=== PATIENT | male | born 1980 | race Caucasian/White ===

== ENCOUNTER 2018-05-10 01:17 | Emergency (ER) | payer OTHER, SELFPAY ==
[2018-05-10 01:27] VITALS: BP 157/95; PULSE 78; RESP 20; TEMP 37.2; O2SAT 98; BMI 62.6
--- NOTE | 2018-05-10 02:16 | ED.SKABFB ---
HPI - Skin/Abscess/Foreign Bdy General Chief complaint: Skin/Abscess/Foreign Body Stated complaint: states abscess left lower abdomen Time Seen by Provider: 05/10/18 02:16 Source: patient Mode of arrival: ambulatory Limitations: no limitations History of Present Illness HPI narrative: The patient presents with an abscess on his left lower abdomen. He has a history of multiple abscesses. His usually manages them at home. He is diabetic, his glucose level has been running in the 200s. He says he has been unable to get the glucose level down. He denies fever or chills. He has had no drainage from the site. The situation started 4 days ago. The abscess has been increasing in size, but has doubled today. He now has a band of erythema around the site. Related Data Home Medications Medication Instructions Recorded Confirmed fluoxetine [Prozac] #0 07/03/12 03/31/18 metformin [Glucophage XR] 500 mg PO QDAY #0 07/03/12 03/31/18 metoprolol tartrate 50 mg PO BID #0 07/03/12 03/31/18 atorvastatin 40 mg PO HS #0 tab 07/21/16 03/31/18 gemfibrozil 600 mg PO BIDAC #60 tab 07/21/16 03/31/18 glipizide 10 mg PO #0 tab 07/21/16 03/31/18 losartan 50 mg PO QDAY #0 tab 07/21/16 03/31/18 nitroglycerin [Nitrostat] 0.4 mg SUBLINGUAL #0 tab 07/21/16 03/31/18 ranitidine HCl 150 mg PO QDAY #0 tab 07/21/16 03/31/18 Previous Rx's Medication Instructions Recorded amoxicillin-pot clavulanate 875 mg PO BID #20 tab 07/21/16 [Augmentin] celecoxib 200 mg capsule 200 mg PO BID PRN #60 cap 03/31/18 clindamycin HCl [Cleocin HCl] 300 mg PO Q8H 10 Days #30 cap 05/10/18 Allergies Allergy/AdvReac Type Severity Reaction Status Date / Time metaproterenol [From ALUPENT] Allergy Unknown Verified 03/31/18 19:40 Sulfa (Sulfonamide Allergy Unknown Verified 03/31/18 19:40 Antibiotics) [SULFA (SULFONAMIDE ANTIBIOTICS)] Review of Systems Constitutional Denies chills, Denies fever(s), Denies lethargy and Denies weakness Eyes Denies change in vision, Denies eye discharge, Denies irritation and Denies loss of vision Gastrointestinal Gastrointestinal: Reports as per HPI, Reports abdominal pain, Denies diarrhea, Denies nausea and Denies vomiting Integumentary/Breasts Reports as per HPI, Reports erythema and Reports other ( Abscess formation) Neurologic Denies loss of vision and Denies weakness [facility] Medical History Diabetes (Acute) Hyperlipidemia (Acute) Hypertension (Acute) Social History Smoking Status: Never smoker Exam Initial Vital Signs Initial Vital Signs: Vital Signs Temperature 98.9 F 05/10/18 01:27 Pulse Rate 78 05/10/18 01:27 Respiratory Rate 20 05/10/18 01:27 Blood Pressure 157/95 H 05/10/18 01:27 Pulse Oximetry 98 05/10/18 01:27 Const General: cooperative and other ( morbidly obese) Orientation: alert, awake, oriented x3 and not confused GI Inspection: large pannus and other ( Abscess in the left lower quadrant, under the pannus. the abscess is fluctuant and protruding, measuring 4 cm x 2 cm. there is no drainage. There is surrounding erythema.) Palpation: soft, No guarding and No mass Auscultation: normal bowel sounds Skin General: other ( Abscess formation as noted on the lower abdomen.) Procedures Abscess I/D Site: abdomen Side (if applicable): left Sedation/analgesia: none Local Anesthetic: lidocaine 1% Amount of anesthesia used (mL): 5 Technique: incised with #11 blade Amount of fluid expressed (mL): 5 Irrigation: Yes Packing used?: iodoform Complications: pain and other ( A wound culture was obtained.) Course Orders Ordered: ED Orders 05/10/18 04:39 Wound Culture and Gram Stain Stat Discontinued Medications Lidocaine/Prilocaine (Lidocaine-Prilocaine Cream) 5 gm TOP NOW ONE Stop: 05/10/18 02:48 Last Admin: 05/10/18 02:53 Dose: 5 gm Vital Signs - 8 hr 05/10/18 01:27 Temperature 98.9 F Pulse Rate 78 Respiratory Rate 20 Blood Pressure 157/95 H Pulse Oximetry 98 Discharge Plan Departure Patient Disposition: Home, Self-Care Clinical Impression: Abscess of skin or subcutaneous tissue, Cellulitis Instructions: DI for Incision and Drainage of a Skin Abscess Activity Restrictions/Additional Instructions: Cleocin 300 mg 3 times daily. Take Tylenol or Advil as needed for pain. Change the dressing as often as necessary. Follow up with her doctor in about 3 days for re-evaluation of the wound. Return here if the redness spreads significantly, or if you developed fever. Prescriptions: New clindamycin HCl [Cleocin HCl] 300 mg capsule 300 mg PO Q8H 10 Days Qty: 30 RF: 0 No Action celecoxib [Celebrex] 200 mg capsule 200 mg PO BID PRN (Reason: pain) Qty: 60 RF: 0 metformin [Glucophage XR] 500 MG tablet extended release 24 hr 500 mg PO QDAY Qty: 0 RF: 0 metoprolol tartrate 50 MG tablet 50 mg PO BID Qty: 0 RF: 0 fluoxetine [Prozac] 10 MG capsule Qty: 0 RF: 0 losartan 50 MG tablet 50 mg PO QDAY Qty: 0 RF: 0 gemfibrozil 600 MG tablet 600 mg PO BIDAC Qty: 60 RF: 0 ranitidine HCl 150 MG tablet 150 mg PO QDAY Qty: 0 RF: 0 atorvastatin 40 MG tablet 40 mg PO HS Qty: 0 RF: 0 glipizide 10 MG tablet 10 mg PO Qty: 0 RF: 0 nitroglycerin [Nitrostat] 0.4 MG tablet, sublingual 0.4 mg Sublingual Qty: 0 RF: 0 amoxicillin-pot clavulanate [Augmentin] 875 MG/125 MG tablet 875 mg PO BID Qty: 20 RF: 0
[2018-05-10] MEDS: LIDOCAINE/PRILOCAINE 5 GM TOP (02:53)
[2018-05-10] MEDS: CLINDAMYCIN 150 MG CAPSULE 300 MG PO (04:47)
[2018-05-10 04:56] VITALS: BP 129/79; PULSE 71; RESP 16; TEMP 36.9; O2SAT 96
== END 2018-05-10 04:55 | disposition home or self-care (01) ==
PROVIDERS: Emergency Provider Emergency Medicine; PCP Physician Assistant Medical
DX: L02.91 Cutaneous abscess, unspecified (principal); L03.90 Cellulitis, unspecified
CPT/HCPCS: 10060; 87070; 87075; 87077; 87205; 99282; 99283

== ENCOUNTER → 2018-09-21 11:07 | Outpatient (CLI) | payer OTHER, SELFPAY ==
[2018-09-21 13:01] LABS: Bacteria Urine None Seen; RBC Urine None Seen (0-5/HPF)
[2018-09-21 13:24] LABS: Add Manual Diff / Slide Review NO; Basophils Percent Auto 1.1 % (0-2); Eosinophils Percent Auto 1.6 % (2-4); Hematocrit 43.8 % (41-53); Hemoglobin 14.5 g/dL (13.5-17.5); Lymphocytes Percent Auto 14.9 % (25-40); Mean Corpuscular HGB Conc 33.1 % (30-36); Mean Corpuscular Hemoglobin 27.9 PG (26-34); Mean Corpuscular Volume 84.3 fL (80-100); Monocytes Percent Auto 4.8 % (3-14); Neutrophils Absolute Auto 6300 /uL (1500-7000); Neutrophils Percent Auto 77.6 % (50-75); Platelet Count 221 X10^3/uL (150-400); Red Blood Cell Count 5.19 X10^6/uL (4.5-5.9); Red Cell Distribution Width 14.1 % (11.6-14.8); White Blood Cell Count 8.2 X10^3/uL (4.5-11.0)
[2018-09-21 14:02] LABS: Appearance Urine UA CLEAR; Bilirubin Urine UA NEGATIVE (NEGATIVE); Color Urine UA YELLOW; Glucose Urine UA 2+ g/dL (Normal); Ketones Urine UA 1+ (NEGATIVE); Leukocyte Esterase Urine UA NEGATIVE (NEGATIVE); Nitrite Urine UA NEGATIVE (Negative); Occult Blood Urine UA NEGATIVE (Negative); Protein Urine UA NEGATIVE (Negative); Specific Gravity Urine UA 1.025 (1.000-1.035); Urobilinogen Urine UA 0.2 E.U./dL (0.2)
[2018-09-21 14:21] LABS: Alanine Aminotransferase 50 IU/L (21-72); Albumin 4.3 g/dL (3.5-5.0); Albumin Globulin Ratio 1.7 (1.0-2.8); Alkaline Phosphatase 141 U/L (38-126); Aspartate Aminotransferase 30 IU/L (17-59); BUN Creatinine Ratio 21.4 (6-22); Bilirubin Total 0.5 mg/dL (0.2-1.3); Blood Urea Nitrogen 15 mg/dL (9-20); Calcium 9.3 mg/dL (8.4-10.2); Carbon Dioxide 25 mmol/L (22-32); Chloride 97 mmol/L (98-107); Estimated Glomerular Filt Rate > 60.0 mL/min (>60); Globulin 2.6 g/dL (1.7-4.1); Glucose 370 mg/dL (70-100); HEMOLYSIS < 15 (0-50); Potassium 4.4 mmol/L (3.4-5.1); Sodium 139 mmol/L (137-145); Total Protein 6.9 g/dL (6.3-8.2)
[2018-09-21 14:25] LABS: Culture Indicated Urine Cult Not Indicated; Squamous Epithelial Cell Urine 5-10 /HPF; WBC Urine 5-10/HPF (0-5/HPF)
== END ==
PROVIDERS: PCP Physician Assistant Medical; Visit Provider Physician Assistant
DX: N50.819 Testicular pain, unspecified (principal); N50.9 Disorder of male genital organs, unspecified; R30.0 Dysuria; Z87.438 Personal history of other diseases of male genital organs
CPT/HCPCS: 36415; 80053; 81001; 85025; 87040

== ENCOUNTER 2018-09-21 16:27 | Emergency (ER) | payer OTHER, SELFPAY ==
--- NOTE | 2018-09-21 16:51 | DI.US.S_ITS ---
PROCEDURE: US SCROTUM INDICATIONS: PALPABLE SCROTAL LUMP. 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 TECHNIQUE: Real-time scanning was performed of the scrotum and testicles, with image documentation. Color and pulse Doppler interrogation was performed of both testicles. COMPARISON: [facility], US, ABDOMEN COMPLETE, 02/06/2009, 19:17. FINDINGS: Right: Testicle is normal in size at 3.9 x 2.1 x 4.2 cm, and homogenous in echotexture. Epididymis is normal in overall size and morphology. No hydrocele or varicoceles. There is minimal right scrotal wall skin thickening at the site of the patient's reported area of palpable lump, but no discrete mass can be identified in this region. Left: Testicle is normal in size at 3.9 x 1.7 x 3.6 cm, and homogeneous in echotexture. Epididymis is normal in overall size and morphology. No hydrocele or varicoceles. Overlying scrotal skin is normal in thickness. Doppler: Color and pulse Doppler demonstrate normal and symmetric arterial flow in both testicles. Doppler ultrasound of the region of the patient's reported palpable lump demonstrates no increased vascularity. IMPRESSION: Targeted ultrasound of the site of the patient's reported palpable lump demonstrates minimal right scrotal skin thickening, but no discrete mass can be identified by ultrasound in the region of concern. Dictated by: Cristian Castillo M.D. on 09/21/2018 at 18:50 Approved by: Cristian Castillo M.D. on 09/21/2018 at 18:58
--- NOTE | 2018-09-21 16:55 | PC.NURSE ---
pt reports noticed small mass on scrotum today, concern r/t history of gangrene to area, denies fever/chills/nausea/vomiting/dysuria/urinary retention/trauma or other sx, amb ind, appears well, further exam deferred to MD
[2018-09-21 16:58] VITALS: BP 186/100; PULSE 90; RESP 16; TEMP 36.1; O2SAT 97
--- NOTE | 2018-09-21 17:03 | ED.MALEGU ---
HPI - Male Genitourinary <Sarita Diehl PA-C - Last Filed: 09/21/18 21:20> General Chief complaint: Urogenital-Male Stated complaint: Couldnt get US done, checking into ER for US Time Seen by Provider: 09/21/18 16:51 Source: patient and old records reviewed Mode of arrival: ambulatory Limitations: no limitations History of Present Illness HPI Narrative: This 38-year-old male comes to ED for testicular ultrasound. He noted a lump between his testicles which is painful, just noted this morning. 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 He denies any fever. He denies any new abdominal pain, denies any hematuria or urinary symptoms. He states that labs were done at the walk-in clinic, but there was a problem with ultrasound scheduling and was told it could not be done today so comes here. He has not taken any pain medication for this today. Related Data Home Medications Medication Instructions Recorded Confirmed atorvastatin 40 mg PO BEDTIME #0 tab 07/21/16 09/21/18 gemfibrozil 1,200 mg PO BEDTIME #60 tab 07/21/16 09/21/18 nitroglycerin [Nitrostat] 0.4 mg SUBLINGUAL PRN PRN #0 tab 07/21/16 09/21/18 fluoxetine 40 mg PO BEDTIME 09/21/18 09/21/18 glimepiride 8 mg PO BEDTIME 09/21/18 09/21/18 isosorbide mononitrate 30 mg PO BEDTIME 09/21/18 09/21/18 losartan-hydrochlorothiazide 1 tab PO BEDTIME 09/21/18 09/21/18 metformin 2,000 mg PO BEDTIME 09/21/18 09/21/18 metoprolol succinate 100 mg PO BEDTIME 09/21/18 09/21/18 Allergies Allergy/AdvReac Type Severity Reaction Status Date / Time metaproterenol [From ALUPENT] Allergy Unknown Verified 03/31/18 19:40 Sulfa (Sulfonamide Allergy Unknown Verified 03/31/18 19:40 Antibiotics) [SULFA (SULFONAMIDE ANTIBIOTICS)] Review of Systems <Sarita Diehl PA-C - Last Filed: 09/21/18 21:20> Review of Systems All systems reviewed & are unremarkable except as noted in HPI and below Exam <Sarita Diehl PA-C - Last Filed: 09/21/18 21:20> Narrative Exam Narrative: GENERAL APPEARANCE: Patient sitting comfortably, in no distress. LUNGS: Clear to auscultation bilaterally. HEART: Rate and rhythm regular without murmur, normal S1 and S2, no S3 or S4. ABDOMEN: Obese, nontender, +bowel sounds x4 quadrants EXTREMITIES: No cyanosis, mild edema symmetric bilaterally DERM: Scrotal sac is somewhat dusky/erythematous as is the underside of the pannus more on the left side. : The L. teste is higher riding than the right and is smaller by palpation, there is moderate tenderness left testicular border and central sac, difficult to palpate any circumscribed mass. No discharge. No palpable hernia. There is an ingrown hair with surrounding nodule on the anterior penile base, nontender Initial Vital Signs Initial Vital Signs: Vital Signs Temperature 97 F L 09/21/18 16:58 Pulse Rate 90 09/21/18 16:58 Respiratory Rate 16 09/21/18 16:58 Blood Pressure 186/100 H 09/21/18 16:58 Pulse Oximetry 97 09/21/18 16:58 <Evie Shah DO - Last Filed: 09/22/18 08:12> Initial Vital Signs Initial Vital Signs: Vital Signs Temperature 97 F L 09/21/18 16:58 Pulse Rate 90 09/21/18 16:58 Respiratory Rate 16 09/21/18 16:58 Blood Pressure 186/100 H 09/21/18 16:58 Pulse Oximetry 97 09/21/18 16:58 Course <Sarita Diehl PA-C - Last Filed: 09/21/18 21:20> Additional Information: The patient reported improvement from morning. Both patient and his or significant other who did his wound care after his scrotal surgeries in the past reported that the lump seems larger this morning but are not able to palpate any circumscribed mass now. Patient does have an ingrown hair with some surrounding induration however does not seem tender at that site. No evidence of acute infection on lab work. He will continue anti-inflammatory. Given his history, he agrees to follow up with his PCP in the next day or 2 and return to closest ED if any acutely worsening symptoms. He would like to discharge and will call if any change in findings on radiologist's reading Orders Ordered: Discontinued Medications Ibuprofen (Advil) 800 mg PO NOW ONE Stop: 09/21/18 17:18 Last Admin: 09/21/18 17:36 Dose: 800 mg Vital Signs - 8 hr 09/21/18 16:58 18 18:39 09/21/18 18:43 Temperature 97 F L 98.6 F 97.3 F L Pulse Rate 90 97 H Respiratory Rate 16 18 Blood Pressure 186/100 H Blood Pressure [Right Arm] 171/108 H Pulse Oximetry 97 91 <Evie Shah DO - Last Filed: 09/22/18 08:12> Orders Ordered: Discontinued Medications Ibuprofen (Advil) 800 mg PO NOW ONE Stop: 09/21/18 17:18 Last Admin: 09/21/18 17:36 Dose: 800 mg Vital Signs - 8 hr 09/21/18 16:58 09/21/18 18:39 09/21/18 18:43 Temperature 97 F L 98.6 F 97.3 F L Pulse Rate 90 97 H Respiratory Rate 16 18 Blood Pressure 186/100 H Blood Pressure [Right Arm] 171/108 H Pulse Oximetry 97 91 MDM - Male Genitourinary <Sarita Diehl PA-C - Last Filed: 09/21/18 21:20> Lab Data Attestation: I reviewed the patient's lab results. see additional lab results from walk in clinic (blood cxs pending) Lab Results 09/21/18 Range/Units 17:40 Lactate 1.0 (0.7-2.1) mmol/L Imaging Data scrotal US: Radiologist's impression: Ultrasound Report Signed Patient: Cristian Looney MR#: [id number] : 1980 Acct:[id number] Age/Sex: 38 / M Date of Service: 09/21/18 Loc: ED Accession Number: [id number] Procedure: US scrotum Ordering Provider: Evie Shah D.O. PROCEDURE: US SCROTUM INDICATIONS: PALPABLE SCROTAL LUMP. 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 TECHNIQUE: Real-time scanning was performed of the scrotum and testicles, with image documentation. Color and pulse Doppler interrogation was performed of both testicles. COMPARISON: [facility], US, ABDOMEN COMPLETE, 02/06/2009, 19:17. FINDINGS: Right: Testicle is normal in size at 3.9 x 2.1 x 4.2 cm, and homogenous in echotexture. Epididymis is normal in overall size and morphology. No hydrocele or varicoceles. There is minimal right scrotal wall skin thickening at the site of the patient's reported area of palpable lump, but no discrete mass can be identified in this region. Left: Testicle is normal in size at 3.9 x 1.7 x 3.6 cm, and homogeneous in echotexture. Epididymis is normal in overall size and morphology. No hydrocele or varicoceles. Overlying scrotal skin is normal in thickness. Doppler: Color and pulse Doppler demonstrate normal and symmetric arterial flow in both testicles. Doppler ultrasound of the region of the patient's reported palpable lump demonstrates no increased vascularity. IMPRESSION: Targeted ultrasound of the site of the patient's reported palpable lump demonstrates minimal right scrotal skin thickening, but no discrete mass can be identified by ultrasound in the region of concern. Dictated by: Cristian Castillo M.D. on 09/21/2018 at 18:50 Approved by: Cristian Castillo M.D. on 09/21/2018 <Evie Shah DO - Last Filed: 09/22/18 08:12> Lab Data Lab Results 09/21/18 Range/Units 17:40 Lactate 1.0 (0.7-2.1) mmol/L Discharge Plan Departure Patient Disposition: Home Clinical Impression: Pain in scrotum or testicle Discharge Date/Time: 09/21/18 18:59 Interventions: ED Discharge Assessment Last Done: 09/21/18 18:59 Instructions: DI for Testicular Pain Activity Restrictions/Additional Instructions: Please return as we discussed if you have any acutely worsening symptoms again. Otherwise, please continue ibuprofen every 8 hr. You can put a warm pack on the ingrown hair at the base of your penis (that does not look inflamed and I am not convinced that it was the source of the lump/pain you were feeling earlier). Since the lump seems improved now and there was no acute problem found on your labwork or ultrasound, you can monitor at home and follow up with your PCP in the next day or two for recheck and referral to Urology if you continue to have pain. I will phone you if the radiologist finds any new problems not seen by the technologist, otherwise I will send the results to [facility] Johnson Prescriptions: No Action gemfibrozil 600 MG tablet 1,200 mg PO BEDTIME Qty: 60 RF: 0 atorvastatin 40 MG tablet 40 mg PO BEDTIME Qty: 0 RF: 0 nitroglycerin [Nitrostat] 0.4 MG tablet, sublingual 0.4 mg Sublingual PRN PRN (Reason: Chest Pain) Qty: 0 RF: 0 fluoxetine 40 mg capsule 40 mg PO BEDTIME RF: 0 isosorbide mononitrate 30 mg tablet extended release 24 hr 30 mg PO BEDTIME RF: 0 metoprolol succinate 100 mg tablet extended release 24 hr 100 mg PO BEDTIME RF: 0 losartan-hydrochlorothiazide 100-25 mg tablet 1 tab PO BEDTIME RF: 0 glimepiride 4 mg tablet 8 mg PO BEDTIME RF: 0 metformin 500 mg tablet extended release 24 hr 2,000 mg PO BEDTIME RF: 0 Referrals: Stacey Johnson PA-C [Primary Care Provider] - Stand Alone Forms: Work Release Note <Evie Shah DO - Last Filed: 09/22/18 08:12> [facility] I was immediately available in the department for consultation. Documentation has been reviewed. I agree with assessment and plan.
--- NOTE | 2018-09-21 17:24 | ED_ITS ---
HPI - Male Genitourinary <Sarita Diehl PA-C - Last Filed: 09/21/18 21:20> General Chief complaint: Urogenital-Male Stated complaint: Couldnt get US done, checking into ER for US Time Seen by Provider: 09/21/18 16:51 Source: patient and old records reviewed Mode of arrival: ambulatory Limitations: no limitations History of Present Illness HPI Narrative: This 38-year-old male comes to ED for testicular ultrasound. He noted a lump between his testicles which is painful, just noted this morning. 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 He denies any fever. He denies any new abdominal pain, denies any hematuria or urinary symptoms. He states that labs were done at the walk-in clinic, but there was a problem with ultrasound scheduling and was told it could not be done today so comes here. He has not taken any pain medication for this today. Related Data Home Medications Medication Instructions Recorded Confirmed atorvastatin 40 mg PO BEDTIME #0 tab 07/21/16 09/21/18 gemfibrozil 1,200 mg PO BEDTIME #60 tab 07/21/16 09/21/18 nitroglycerin [Nitrostat] 0.4 mg SUBLINGUAL PRN PRN #0 tab 07/21/16 09/21/18 fluoxetine 40 mg PO BEDTIME 09/21/18 09/21/18 glimepiride 8 mg PO BEDTIME 09/21/18 09/21/18 isosorbide mononitrate 30 mg PO BEDTIME 09/21/18 09/21/18 losartan-hydrochlorothiazide 1 tab PO BEDTIME 09/21/18 09/21/18 metformin 2,000 mg PO BEDTIME 09/21/18 09/21/18 metoprolol succinate 100 mg PO BEDTIME 09/21/18 09/21/18 Allergies Allergy/AdvReac Type Severity Reaction Status Date / Time metaproterenol [From ALUPENT] Allergy Unknown Verified 03/31/18 19:40 Sulfa (Sulfonamide Allergy Unknown Verified 03/31/18 19:40 Antibiotics) [SULFA (SULFONAMIDE ANTIBIOTICS)] Review of Systems <Sarita Diehl PA-C - Last Filed: 09/21/18 21:20> Review of Systems All systems reviewed & are unremarkable except as noted in HPI and below Exam <Sarita Diehl PA-C - Last Filed: 09/21/18 21:20> Narrative Exam Narrative: GENERAL APPEARANCE: Patient sitting comfortably, in no distress. LUNGS: Clear to auscultation bilaterally. HEART: Rate and rhythm regular without murmur, normal S1 and S2, no S3 or S4. ABDOMEN: Obese, nontender, +bowel sounds x4 quadrants EXTREMITIES: No cyanosis, mild edema symmetric bilaterally DERM: Scrotal sac is somewhat dusky/erythematous as is the underside of the pannus more on the left side. : The L. teste is higher riding than the right and is smaller by palpation, there is moderate tenderness left testicular border and central sac, difficult to palpate any circumscribed mass. No discharge. No palpable hernia. There is an ingrown hair with surrounding nodule on the anterior penile base, nontender Initial Vital Signs Initial Vital Signs: Vital Signs Temperature 97 F L 09/21/18 16:58 Pulse Rate 90 09/21/18 16:58 Respiratory Rate 16 09/21/18 16:58 Blood Pressure 186/100 H 09/21/18 16:58 Pulse Oximetry 97 09/21/18 16:58 <Evie Shah DO - Last Filed: 09/22/18 08:12> Initial Vital Signs Initial Vital Signs: Vital Signs Temperature 97 F L 09/21/18 16:58 Pulse Rate 90 09/21/18 16:58 Respiratory Rate 16 09/21/18 16:58 Blood Pressure 186/100 H 09/21/18 16:58 Pulse Oximetry 97 09/21/18 16:58 Course <Sarita Diehl PA-C - Last Filed: 09/21/18 21:20> Additional Information: The patient reported improvement from morning. Both patient and his or significant other who did his wound care after his scrotal surgeries in the past reported that the lump seems larger this morning but are not able to palpate any circumscribed mass now. Patient does have an ingrown hair with some surrounding induration however does not seem tender at that site. No evidence of acute infection on lab work. He will continue anti- inflammatory. Given his history, he agrees to follow up with his PCP in the next day or 2 and return to closest ED if any acutely worsening symptoms. He would like to discharge and will call if any change in findings on radiologist' s reading Orders Ordered: Discontinued Medications Ibuprofen (Advil) 800 mg PO NOW ONE Stop: 09/21/18 17:18 Last Admin: 09/21/18 17:36 Dose: 800 mg Vital Signs - 8 hr 09/21/18 16:58 18 18:39 09/21/18 18:43 Temperature 97 F L 98.6 F 97.3 F L Pulse Rate 90 97 H Respiratory Rate 16 18 Blood Pressure 186/100 H Blood Pressure [Right Arm] 171/108 H Pulse Oximetry 97 91 <Evie Shah DO - Last Filed: 09/22/18 08:12> Orders Ordered: Discontinued Medications Ibuprofen (Advil) 800 mg PO NOW ONE Stop: 09/21/18 17:18 Last Admin: 09/21/18 17:36 Dose: 800 mg Vital Signs - 8 hr 09/21/18 16:58 09/21/18 18:39 09/21/18 18:43 Temperature 97 F L 98.6 F 97.3 F L Pulse Rate 90 97 H Respiratory Rate 16 18 Blood Pressure 186/100 H Blood Pressure [Right Arm] 171/108 H Pulse Oximetry 97 91 MDM - Male Genitourinary <Sarita Diehl PA-C - Last Filed: 09/21/18 21:20> Lab Data Attestation: I reviewed the patient's lab results. see additional lab results from walk in clinic (blood cxs pending) Lab Results 09/21/18 Range/Units 17:40 Lactate 1.0 (0.7-2.1) mmol/L Imaging Data scrotal US: Radiologist's impression: Ultrasound Report Signed Patient: Cristian Looney MR#: [id number] : 1980 Acct:[id number] Age/Sex: 38 / M Date of Service: 09/21/18 Loc: ED Accession Number: [id number] Procedure: US scrotum Ordering Provider: Evie Shah D.O. PROCEDURE: US SCROTUM INDICATIONS: PALPABLE SCROTAL LUMP. Patient reports a palpable scrotal wall lump near the head of the penis, per butcher fish. TECHNIQUE: Real-time scanning was performed of the scrotum and testicles, with image documentation. Color and pulse Doppler interrogation was performed of both testicles. COMPARISON: [facility], US, ABDOMEN COMPLETE, 02/06/2009, 19:17. FINDINGS: Right: Testicle is normal in size at 3.9 x 2.1 x 4.2 cm, and homogenous in echotexture. Epididymis is normal in overall size and morphology. No hydrocele or varicoceles. There is minimal right scrotal wall skin thickening at the site of the patient's reported area of palpable lump, but no discrete mass can be identified in this region. Left: Testicle is normal in size at 3.9 x 1.7 x 3.6 cm, and homogeneous in echotexture. Epididymis is normal in overall size and morphology. No hydrocele or varicoceles. Overlying scrotal skin is normal in thickness. Doppler: Color and pulse Doppler demonstrate normal and symmetric arterial flow in both testicles. Doppler ultrasound of the region of the patient's reported palpable lump demonstrates no increased vascularity. IMPRESSION: Targeted ultrasound of the site of the patient's reported palpable lump demonstrates minimal right scrotal skin thickening, but no discrete mass can be identified by ultrasound in the region of concern. Dictated by: Cristian Castillo M.D. on 09/21/2018 at 18:50 Approved by: Cristian Castillo M.D. on 09/21/2018 <Evie Shah DO - Last Filed: 09/22/18 08:12> Lab Data Lab Results 09/21/18 Range/Units 17:40 Lactate 1.0 (0.7-2.1) mmol/L Discharge Plan Departure Patient Disposition: Home Clinical Impression: Pain in scrotum or testicle Discharge Date/Time: 09/21/18 18:59 Interventions: ED Discharge Assessment Last Done: 09/21/18 18:59 Instructions: DI for Testicular Pain Activity Restrictions/Additional Instructions: Please return as we discussed if you have any acutely worsening symptoms again. Otherwise, please continue ibuprofen every 8 hr. You can put a warm pack on the ingrown hair at the base of your penis (that does not look inflamed and I am not convinced that it was the source of the lump/pain you were feeling earlier). Since the lump seems improved now and there was no acute problem found on your labwork or ultrasound, you can monitor at home and follow up with your PCP in the next day or two for recheck and referral to Urology if you continue to have pain. I will phone you if the radiologist finds any new problems not seen by the technologist, otherwise I will send the results to [facility] Prescriptions: No Action gemfibrozil 600 MG tablet 1,200 mg PO BEDTIME Qty: 60 RF: 0 atorvastatin 40 MG tablet 40 mg PO BEDTIME Qty: 0 RF: 0 nitroglycerin [Nitrostat] 0.4 MG tablet, sublingual 0.4 mg Sublingual PRN PRN (Reason: Chest Pain) Qty: 0 RF: 0 fluoxetine 40 mg capsule 40 mg PO BEDTIME RF: 0 isosorbide mononitrate 30 mg tablet extended release 24 hr 30 mg PO BEDTIME RF: 0 metoprolol succinate 100 mg tablet extended release 24 hr 100 mg PO BEDTIME RF: 0 losartan-hydrochlorothiazide 100-25 mg tablet 1 tab PO BEDTIME RF: 0 glimepiride 4 mg tablet 8 mg PO BEDTIME RF: 0 metformin 500 mg tablet extended release 24 hr 2,000 mg PO BEDTIME RF: 0 Referrals: Stacey Johnson PA-C [Primary Care Provider] - Stand Alone Forms: Work Release Note <Evie Shah DO - Last Filed: 09/22/18 08:12> [facility] I was immediately available in the department for consultation. Documentation has been reviewed. I agree with assessment and plan.
[2018-09-21] MEDS: IBUPROFEN 400 MG TABLET 800 MG PO (17:36)
[2018-09-21 18:39] VITALS: TEMP 37
[2018-09-21 18:43] VITALS: BP 171/108; PULSE 97; RESP 18; TEMP 36.3; O2SAT 91
== END 2018-09-21 18:59 | disposition home or self-care (01) ==
PROVIDERS: Emergency Provider Internal Medicine; PCP Physician Assistant Medical
DX: N50.819 Testicular pain, unspecified (principal)
CPT/HCPCS: 36415; 76870; 80053; 81001; 83605; 85025; 87040; 99282; 99284

== ENCOUNTER 2019-10-21 22:16 | Emergency (ER) | payer OTHER, SELFPAY ==
[2019-10-21 22:24] VITALS: BP 148/82; PULSE 104; RESP 18; TEMP 35.7; O2SAT 94; BMI 86.9
[2019-10-21] MEDS: DOXYCYCLINE HYCLATE 100 MG TABLET PO (22:43)
--- NOTE | 2019-10-22 00:31 | ED.SKABFB ---
HPI - Skin/Abscess/Foreign Bdy General Chief complaint: Skin/Abscess/Foreign Body Stated complaint: states infected abscess Time Seen by Provider: 10/21/19 22:33 Source: patient and family Mode of arrival: Family Vehicle Limitations: no limitations History of Present Illness HPI narrative: 39-year-old male nonsmoker with history of diabetes and morbid obesity as well as multiple skin infections presents with his in the chief complaint of superficial abscess on his left lower abdomen that is draining foul-smelling material. He denies any fever chills nor nausea or vomiting. He is not dizzy nor weak or lightheaded. He states that in the past he has had to have his abscess packed so he wanted to be seen. He denies any trouble with bowel movements or any deep abdominal pain. His pain is worse with motion and improves with rest. MD complaint: abscess/boil Onset (ago): day(s) Tetanus up to date: yes Location: generalized (Left lower quadrant) Severity: mild Quality: aching Pain Consistency: constant Relieving factors: rest Exacerbating factors: palpation and movement Context: none Associated symptoms: denies other symptoms Treatments prior to arrival: attempted to drain pus at home Related Data Home Medications Medication Instructions Recorded Confirmed atorvastatin 40 mg PO BEDTIME #0 tab 07/21/16 09/21/18 gemfibrozil 1,200 mg PO BEDTIME #60 tab 07/21/16 09/21/18 nitroglycerin [Nitrostat] 0.4 mg SUBLINGUAL PRN PRN #0 tab 07/21/16 09/21/18 fluoxetine 40 mg PO BEDTIME 09/21/18 09/21/18 glimepiride 8 mg PO BEDTIME 09/21/18 09/21/18 isosorbide mononitrate 30 mg PO BEDTIME 09/21/18 09/21/18 losartan-hydrochlorothiazide 1 tab PO BEDTIME 09/21/18 09/21/18 metformin 2,000 mg PO BEDTIME 09/21/18 09/21/18 metoprolol succinate 100 mg PO BEDTIME 09/21/18 09/21/18 Previous Rx's Medication Instructions Recorded doxycycline monohydrate 100 mg PO BID 10 Days #20 cap 10/21/19 Allergies Allergy/AdvReac Type Severity Reaction Status Date / Time metaproterenol [From ALUPENT] Allergy Unknown Verified 03/31/18 19:40 Sulfa (Sulfonamide Allergy Unknown Verified 03/31/18 19:40 Antibiotics) [SULFA (SULFONAMIDE ANTIBIOTICS)] Review of Systems Constitutional Constitutional: Denies chills, Denies fatigue, Denies fever(s), Denies frequent falls, Denies lethargy and Denies weakness Eyes Eyes: Denies change in vision, Denies eye discharge, Denies irritation and Denies loss of vision ENT Ears, Nose, Mouth, and Throat: Denies change in voice, Denies dizziness, Denies neck pain, Denies sore throat and Denies throat swelling Cardiovascular Cardiovascular: Denies chest pain, Denies irregular heart rhythm, Denies lightheadedness, Denies palpitations, Denies dyspnea, Denies dyspnea on exertion and Denies orthopnea Respiratory Respiratory: Denies cough, Denies dyspnea, Denies dyspnea on exertion and Denies wheezing Gastrointestinal Gastrointestinal: Denies abdominal pain, Denies change in bowel habits, Denies diarrhea, Denies nausea and Denies vomiting Genitourinary Genitourinary: Denies hematuria, Denies flank pain, Denies urinary incontinence and Denies urinary urgency Musculoskeletal Musculoskeletal: Denies back pain, Denies muscle weakness, Denies neck pain, Denies numbness and Denies tingling Integumentary/Breasts Skin/Breast: Denies pruritus, Reports erythema, Denies rash, Reports skin swelling and Reports wounds Neurologic Neurologic: Denies behavioral changes, Denies confusion, Denies dizziness, Denies frequent falls, Denies loss of vision, Denies numbness, Denies tingling and Denies weakness Psychiatric Psychiatric: Denies anxiety, Denies behavioral changes, Denies confusion, Denies depression, Denies homicidal ideation and Denies suicidal ideation Endocrine Endocrine: Denies fatigue, Denies flushing and Denies palpitations Hematologic/Lymphatic Hematologic/Lymphatic: Denies easy bruising Allergic/Immunologic Allergic/Immunologic: Denies urticaria, Denies throat swelling and Denies wheezing Patient History Medical History Diabetes (Chronic) History of Darcy's gangrene (Resolved) Hyperlipidemia (Chronic) Hypertension (Chronic) Social History Smoking Status: Never smoker Smoking Status: Never smoker alcohol intake frequency: 0-2 drinks per day Substance Use Type: does not use Exam Narrative Exam Narrative: GEN: AOx3 and in mild distress, morbidly obese, resting comfortably EYES: Pupils are equal, round, and reactive to light and accommodation. Extraoccular muscles are intact bilaterally. There is no subconjunctival hemorrhage or exudate. CHEST: Lungs are clear to auscultation bilaterally and free of wheezes, rales, or rhonchi. Heart rate is regular rhythm, there are no murmurs, clicks, rubs, or gallops. There is no chest wall tenderness. ABD: Abdomen is soft and nontender to deep palpation. He is tender only superficially, in the region of this already drained abscess. Wound culture obtained and sent to the lab There is some surrounding cellulitis but no deep pain, fluctuance or induration There is no guarding or rebound. Bowel sounds are normal in all 4 quadrants. There is no mass or organomegaly. EXT: Full painless ROM of all extremities with no loss of sensation or strength. SKIN: Warm, pink, and dry. No erythema or rash of exposed areas other than that which is noted above Initial Vital Signs Initial Vital Signs: Vital Signs Temperature 96.3 F L 10/21/19 22:24 Pulse Rate 104 H 10/21/19 22:24 Respiratory Rate 18 10/21/19 22:24 Blood Pressure 148/82 H 10/21/19 22:24 Pulse Oximetry 94 10/21/19 22:24 Course Orders Ordered: ED Orders 10/21/19 23:33 Wound Culture and Gram Stain Stat Discontinued Medications Doxycycline Hyclate (Vibramycin) 100 mg PO NOW ONE Stop: 10/21/19 22:34 Last Admin: 10/21/19 22:43 Dose: 100 mg Documented by: OLGA Vital Signs Vital signs: Vital Signs - 8 hr 10/21/19 22:24 Temperature 96.3 F L Pulse Rate 104 H Respiratory Rate 18 Blood Pressure 148/82 H Pulse Oximetry 94 MDM - Skin/Abscess/Foreign Bdy MDM Narrative Medical decision making narrative: 39-year-old male with draining superficial abscess of abdomen. He has no deep pain and denies systemic findings such as fever, chills nor nausea or vomiting. We discussed the utility of imaging or labs and elect to hold off for now. He is not septic and appears otherwise well. Return precautions given and questions answered to the apparent satisfaction of patient and his Discharge Plan Departure Patient Disposition: Home Clinical Impression: Abscess of skin or subcutaneous tissue Qualifiers: Site of cutaneous abscess: trunk Site of cutaneous abscess of trunk: abdominal wall Qualified Code(s): L02.211 - Cutaneous abscess of abdominal wall Discharge Date/Time: 10/21/19 22:56 Instructions: DI for Cellulitis -- Adult, DI for Skin Abscess Activity Restrictions/Additional Instructions: *You have been diagnosed with [acute spontaneously draining abdominal wall abscess with cellulitis] *What to do: *Take medications as directed *Follow up with your primary care provider in 2-3 days, call for an appointment. Let them know you were seen in the Emergency Department and that we ask that you be seen in follow up *Return to ER if you should have any new, worsening or concerning symptoms Prescriptions: New doxycycline monohydrate 100 mg capsule 100 mg PO BID 10 Days Qty: 20 RF: 0 No Action gemfibrozil 600 MG tablet 1,200 mg PO BEDTIME Qty: 60 RF: 0 atorvastatin 40 MG tablet 40 mg PO BEDTIME Qty: 0 RF: 0 nitroglycerin [Nitrostat] 0.4 MG tablet, sublingual 0.4 mg Sublingual PRN PRN (Reason: Chest Pain) Qty: 0 RF: 0 fluoxetine 40 mg capsule 40 mg PO BEDTIME RF: 0 isosorbide mononitrate 30 mg tablet extended release 24 hr 30 mg PO BEDTIME RF: 0 metoprolol succinate 100 mg tablet extended release 24 hr 100 mg PO BEDTIME RF: 0 losartan-hydrochlorothiazide 100-25 mg tablet 1 tab PO BEDTIME RF: 0 glimepiride 4 mg tablet 8 mg PO BEDTIME RF: 0 metformin 500 mg tablet extended release 24 hr 2,000 mg PO BEDTIME RF: 0 Referrals: [facility] [Outside] Stacey Johnson PA-C [Primary Care Provider] -
== END 2019-10-21 22:56 | disposition home or self-care (01) ==
PROVIDERS: Emergency Provider Emergency Medicine; Family Provider Physician Assistant Medical; PCP Physician Assistant Medical
DX: L02.211 Cutaneous abscess of abdominal wall (principal); E11.9 Type 2 diabetes mellitus without complications
CPT/HCPCS: 87070; 87075; 87205; 99283

== ENCOUNTER 2020-03-03 13:10 | Emergency (ER) | payer OTHER, SELFPAY ==
[2020-03-03 13:16] VITALS: BP 133/72; PULSE 81; RESP 20; TEMP 36.9; O2SAT 97; BMI 59.3
--- NOTE | 2020-03-03 13:54 | DI.RAD.S_ITS ---
PROCEDURE: XR TOE RT MIN 2V INDICATIONS: great toe injury, diabetic avulsed nail, tender proximal toe TECHNIQUE: 3 views of the right great toe(s) acquired. COMPARISON: None. FINDINGS: Bones: No fractures or dislocations. No suspicious bony lesions. Soft tissues: No suspicious soft tissue densities. IMPRESSION: No bony abnormalities or unexpected radiopaque foreign bodies. Dictated by: Kathy Verdugo M.D. on 03/03/2020 at 14:57 Approved by: Kathy Verdugo M.D. on 03/03/2020 at 14:58
--- NOTE | 2020-03-03 13:59 | ED_ITS ---
HPI - Extremity Problem General Chief complaint: Extremity Problem,Nontraumatic Stated complaint: HAVE A REMOVABLE TOENAIL DIABETIC Time Seen by Provider: 03/03/20 13:36 Source: patient Mode of arrival: Ambulatory Limitations: no limitations History of Present Illness HPI Narrative: CC: Mildly toenail on my left great toe is not attached. HPI: The patient is a 39-year-old male with a history of diabetes mellitus hypertension and a previous myocardial infarction who presents to the emergency department with a loose toenail on his left great toe. He does not know how he injured it or avulse to the nail. His believes that he caught it on the blanket and sheets and ripped it loose. He denies any pain or discomfort stating that he has neuropathy. He denies crushing it or dropping anything on it. He states that he has been a type 2 diabetic for at least 16 years. He is currently having no pain or discomfort. Related Data Home Medications Medication Instructions Recorded Confirmed atorvastatin 40 mg PO BEDTIME #0 tab 07/21/16 09/21/18 gemfibrozil 1,200 mg PO BEDTIME #60 tab 07/21/16 09/21/18 nitroglycerin [Nitrostat] 0.4 mg SUBLINGUAL PRN PRN #0 tab 07/21/16 09/21/18 fluoxetine 40 mg PO BEDTIME 09/21/18 09/21/18 glimepiride 8 mg PO BEDTIME 09/21/18 09/21/18 isosorbide mononitrate 30 mg PO BEDTIME 09/21/18 09/21/18 losartan-hydrochlorothiazide 1 tab PO BEDTIME 09/21/18 09/21/18 metformin 2,000 mg PO BEDTIME 09/21/18 09/21/18 metoprolol succinate 100 mg PO BEDTIME 09/21/18 09/21/18 Previous Rx's Medication Instructions Recorded naproxen [Naprosyn] 500 mg PO BID PRN #14 tab 03/03/20 Allergies Allergy/AdvReac Type Severity Reaction Status Date / Time metaproterenol [From ALUPENT] Allergy Unknown Verified 03/31/18 19:40 Sulfa (Sulfonamide Allergy Unknown Verified 03/31/18 19:40 Antibiotics) [SULFA (SULFONAMIDE ANTIBIOTICS)] Review of Systems Review of Systems Narrative: REVIEW OF SYSTEMS: CONSTITUTIONAL: He denies any fever chills or sweats. NEUROLOGICAL: He denies any headache. He has numbness and tingling loss of sensation in his toes in his feet. This is all secondary to his diabetic neuropathy. EENT: He denies any sore throat difficulty in swallowing or nasal congestion. CARDIO-PULMONARY: He has had no chest pain cough shortness of breath difficulty in breathing. GASTROINTESTINAL: He denies any abdominal pain nausea vomiting diarrhea. GENITAL URINARY: He has had no troubles urinating. MUSCULOSKELETAL/ RHEUMATOLOGICAL: He denies any back pain more than usual. Patient History Medical History Diabetes (Chronic) History of Darcy's gangrene (Resolved) Hyperlipidemia (Chronic) Hypertension (Chronic) Social History Smoking Status: Former smoker Smoking Status: Former smoker alcohol intake frequency: 0-2 drinks per day Substance Use Type: marijuana Exam Narrative Exam Narrative: PHYSICAL EXAM: CONSTITUTIONAL: Awake, Alert, Oriented, Coherent, Cooperative in NAD. Does not appear toxic or ill. HEAD: AT/NC EENT: PERRL, FROM of eyes, no discharge, no nystagmus NECK: Supple, no obvious JVD, Trachea is midline without stridor, no palpable LN. SPINE: Palpationof the cervical, Thoracic, Lumbar or Sacral spine reveals no gross deformity or tenderness. No CVA tenderness. THORAX: No deformity, retractions, chest wall tenderness. LUNGS: Clear, symmetrical breath sounds without respiratory distress. HEART: Normal heart tones, regular rhythm and rate without murmur. ABDOMEN: Soft, non-tender, without guarding, rebound, rigidity or palpable mass. EXTREMITIES: The toenail of the patient's left great toe is raised in elevated with debris in blood underneath the nail. It is not actively bleeding at this time. There is no other deformity involving the toes. There is no lesions between the toes no skin rash. Palpation of the patient's proximal phalanx of the great toe cause the patient to jump with discomfort. SKIN: There is no other rash bruising noted. NEURO: Awake, alert, oriented, conversive, cranial nerves II-XII are symmetrical , moves all 4 extremities and is ambulatory. Initial Vital Signs Initial Vital Signs: Vital Signs Temperature 98.4 F 03/03/20 13:16 Pulse Rate 81 03/03/20 13:16 Respiratory Rate 20 03/03/20 13:16 Blood Pressure 133/72 03/03/20 13:16 Pulse Oximetry 97 03/03/20 13:16 Course Course Course Narrative: The x-ray of the patient's left great toe revealed no evidence of a fracture dislocation of any of the phalanges. The toe was prepped with Betadine solution and a 0.5% Marcaine digital block was administered to the left great toe. A total of 8 cc was utilized. After adequate anesthesia the nail was explored and 80% of it was a vault and detached from the nail bed. Forceps were used to loosen the nail from the rest of the nail bed and the eponychium. The nail was then removed and extracted from the eponychium. The nail bed was explored and revealed no fracture laceration. It was cleansed with saline. The nail was reinserted into the eponychium and sutured laterally into place with 2 3-0 simple nylon sutures. The toe was then dressed with Xeroform gauze and wrapped with 2 in [place] and taped in place with paper tape. The patient tolerated the procedure well and was discharged home to be seen in follow-up by his electronic gaming device supervisor. He was not placed on any antibiotic and was prescribed Naprosyn for his any pain and discomfort. He was advised to keep it clean and dry elevated for the next 48 hours and to have a wound check in 48- 72 hours. He was advised not to crush it and that he could wear his chronic ox for protection and to keep it clean and dry. He was advised that if he develops worsening pain fever pro bleeding signs of infection fever he needs to return to the emergency department immediately otherwise he follows up with his electronic gaming device supervisor. Orders Ordered: ED Orders 03/03/20 13:54 XR toe RT min 2V Stat Discontinued Medications Bupivacaine HCl (Sensorcaine 0.5%) 10 ml INJ INTRA-OP ONE Stop: 03/03/20 13:58 Last Admin: 03/03/20 14:31 Dose: 10 ml Documented by: OLGA Vital Signs Vital signs: Vital Signs - 8 hr 03/03/20 13:16 03/03/20 16:00 Temperature 98.4 F Pulse Rate 81 75 Respiratory Rate 20 20 Blood Pressure 133/72 Blood Pressure [Left Arm] 118/67 Pulse Oximetry 97 98 Discharge Plan Departure Patient Disposition: Home Clinical Impression: Nail avulsion Injury of toe on left foot Qualifiers: Encounter type: initial encounter Qualified Code(s): S99.922A - Unspecified injury of left foot, initial encounter Discharge Date/Time: 03/03/20 16:32 Activity Restrictions/Additional Instructions: 1. Follow-up with your electronic gaming device supervisor in the next 48-72 hours. 2. Leave dressing on in place until your seen by your electronic gaming device supervisor. If you are unable to be seen by the electronic gaming device supervisor you need to have a wound check in 72 hours return to the emergency department. 3. Keep dressing on until wound check. If you develop fever profuse bleeding pustular drainage pain and discomfort unrelieved by the medication you need to return to the emergency department 4. Keep foot elevated for the next 48 hours. 5. You can wear the crocs to protect the foot and keep it without pressure on the toe. Prescriptions: New naproxen [Naprosyn] 500 mg tablet 500 mg PO BID PRN (Reason: pain) Qty: 14 RF: 0 No Action gemfibrozil 600 MG tablet 1,200 mg PO BEDTIME Qty: 60 RF: 0 atorvastatin 40 MG tablet 40 mg PO BEDTIME Qty: 0 RF: 0 nitroglycerin [Nitrostat] 0.4 MG tablet, sublingual 0.4 mg Sublingual PRN PRN (Reason: Chest Pain) Qty: 0 RF: 0 fluoxetine 40 mg capsule 40 mg PO BEDTIME RF: 0 isosorbide mononitrate 30 mg tablet extended release 24 hr 30 mg PO BEDTIME RF: 0 metoprolol succinate 100 mg tablet extended release 24 hr 100 mg PO BEDTIME RF: 0 losartan-hydrochlorothiazide 100-25 mg tablet 1 tab PO BEDTIME RF: 0 glimepiride 4 mg tablet 8 mg PO BEDTIME RF: 0 metformin 500 mg tablet extended release 24 hr 2,000 mg PO BEDTIME RF: 0 Referrals: Stacey Johnson PA-C [Primary Care Provider] - Stand Alone Forms: Work Release Note
[2020-03-03] MEDS: BUPIVACAINE 0.5% MDV 10 ML INJ (14:31)
[2020-03-03 16:00] VITALS: BP 118/67; PULSE 75; RESP 20; O2SAT 98
== END 2020-03-03 16:32 | disposition home or self-care (01) ==
PROVIDERS: Emergency Provider Emergency Medicine; Family Provider Physician Assistant Medical; PCP Physician Assistant Medical
DX: S91.202A Unspecified open wound of left great toe with damage to nail, initial encounter (principal); E11.9 Type 2 diabetes mellitus without complications; I10 Essential (primary) hypertension; I25.2 Old myocardial infarction
CPT/HCPCS: 11730; 64450; 73660; 93041; 99283

== ENCOUNTER 2020-08-17 12:49 | Emergency (ER) | payer OTHER, SELFPAY ==
[2020-08-17 12:57] VITALS: BP 135/83; PULSE 72; RESP 12; TEMP 37; O2SAT 97; BMI 59.3
--- NOTE | 2020-08-17 12:59 | DI.CT.S_ITS ---
PROCEDURE: CT HEAD/BRAIN WO CON INDICATIONS: fall hit head on thinners TECHNIQUE: Noncontrast 4.5 mm thick angled axial sections acquired from the foramen magnum to the vertex, with coronal and sagittal reformats. For radiation dose reduction, the following was used: automated exposure control, adjustment of mA and/or kV according to patient size. COMPARISON: None. FINDINGS: Image quality: Excellent. CSF spaces: Basal cisterns are patent. No extra-axial fluid collections. Ventricles are normal in size and shape. Brain: No midline shift. No intracranial masses or hemorrhage. Cantrell-white matter interface is normal. Distal intracranial ICA atherosclerotic calcifications. Skull and face: Suspect soft tissue contusion at the left posterior occiput. Calvarium and visualized facial bones are intact, without suspicious lesions. Hyperostosis frontalis. Sinuses: Mucosal thickening in the bilateral maxillary sinuses, left greater than right. There may be increased density in the right maxillary sinus. Mastoids are clear. IMPRESSION: 1. No acute intracranial abnormality. 2. Distal intracranial ICA atherosclerotic calcifications, early onset. 3. 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 4. Suspect soft tissue contusion at the left posterior scalp. No fracture. Dictated by: Wilfredo Tello M.D. on 08/17/2020 at 13:23 Approved by: Wilfredo Tello M.D. on 08/17/2020 at 13:27
[2020-08-17 13:01] VITALS: BP 124/58; PULSE 67; RESP 16; O2SAT 96
[2020-08-17 13:30] VITALS: PULSE 69; O2SAT 96
[2020-08-17 13:42] VITALS: BP 136/79; PULSE 75; O2SAT 96
--- NOTE | 2020-08-17 13:42 | ED_ITS ---
HPI - Fall General Chief Complaint: Fall Stated Complaint: fall in shower, hit his head Time Seen by Provider: 08/17/20 13:34 Source: patient and family Mode of arrival: Family Vehicle Limitations: no limitations History of Present Illness HPI Narrative: This is a 40-year-old male who comes to the emergency department after falling out of the shower. Patient normally put a lotion on his feet and he thinks that when he was getting in to the shower made it extra slippery and he fell backwards out of the shower. It is a tub so he did fall backwards over the edge of the tub and hit his head either on the floor or possibly the counter. Patient did not have a loss of consciousness. He does have a lump on the back of his scalp, he does have a headache, he denies any vision changes but does state that ?his lazy eye feels lazier.No neck pain. Patient has some lower back pain, he has some chronic low back pain and states it is slightly worse but not significantly today. He denies any numbness, tingling or weakness of his extremities, he denies any loss of bowel or bladder control. He denies any nausea or vomiting or other GI symptoms. He does take Plavix daily, he has a history of cardiac stent and angioplasty and is on a statin, hypertension medications as well as anti diabetic medications. Patient PCP is at the [facility]. Related Data Home Medications Medication Instructions Recorded Confirmed atorvastatin 40 mg PO BEDTIME #0 tab 07/21/16 09/21/18 gemfibrozil 1,200 mg PO BEDTIME #60 tab 07/21/16 09/21/18 nitroglycerin [Nitrostat] 0.4 mg SUBLINGUAL PRN PRN #0 tab 07/21/16 09/21/18 fluoxetine 40 mg PO BEDTIME 09/21/18 09/21/18 glimepiride 8 mg PO BEDTIME 09/21/18 09/21/18 isosorbide mononitrate 30 mg PO BEDTIME 09/21/18 09/21/18 losartan-hydrochlorothiazide 1 tab PO BEDTIME 09/21/18 09/21/18 metformin 2,000 mg PO BEDTIME 09/21/18 09/21/18 metoprolol succinate 100 mg PO BEDTIME 09/21/18 09/21/18 Previous Rx's Medication Instructions Recorded naproxen [Naprosyn] 500 mg PO BID PRN #14 tab 03/03/20 Allergies Allergy/AdvReac Type Severity Reaction Status Date / Time metaproterenol [From ALUPENT] Allergy Unknown Verified 08/17/20 12:59 Sulfa (Sulfonamide Allergy Unknown Verified 08/17/20 12:59 Antibiotics) [SULFA (SULFONAMIDE ANTIBIOTICS)] Review of Systems Review of Systems ROS Unobtainable: All systems reviewed & are unremarkable except as noted in HPI and below Patient History Medical History Diabetes (Chronic) History of Darcy's gangrene (Resolved) Hyperlipidemia (Chronic) Hypertension (Chronic) Social History Smoking Status: Former smoker Smoking Status: Former smoker alcohol intake frequency: 0-2 drinks per day Substance Use Type: marijuana Exam Narrative Exam Narrative: GEN: Patient appears in mild distress. HEAD: Patient has a small to moderate-sized hematoma on the left posterior scalp with some mild abrasion, no raccoon/Smith sign. NECK: Nontender, painless range of motion, trachea midline Negative for Nexus criteria, there is no mid line tenderness, distracting injury, altered mental status, neuro deficit, recent EtOH. EYES: PERRLA, EOMI ENT: External inspection normal, trachea is midline, TM's are normal no hemotypanum, Nares are clear. RESP: Chest is nontender and has symmetric movement, no ecchymosis, breath sounds are normal no crackles, wheezes or rales CVS: Heart sounds are normal, no murmur noted, No JVD. ABG/GI: Nontender, soft, normal bowel sounds, no distention, no organomegaly NEURO: Oriented AOx3, neuro is grossly intact, sensation and motor is normal all 4 extremities moving, cranial nerves II through XII are intact, GCS is 15 PSYCH: Normal mood and affect SKIN: Intact, warm and dry, no crepitus and without decubitus BACK: No CVA tenderness, no vertebral tenderness, no step-off's, no crepitus EXT: Atraumatic, hips are nontender, no pedal edema, normal color and temperature, normal range of motion of extremities with normal tendon exam, 2+ pulses in all four extremities Initial Vital Signs Initial Vital Signs: Vital Signs Temperature 98.6 F 08/17/20 12:57 Pulse Rate 72 08/17/20 12:57 Respiratory Rate 12 08/17/20 12:57 Blood Pressure 135/83 08/17/20 12:57 Pulse Oximetry 97 08/17/20 12:57 Scores GCS [place] coma scale eye opening: Spontaneous Nilesh coma scale verbal response: Orientated Nilesh coma scale motor response: Obey commands [place] coma scale total score: 15 Course Orders Ordered: ED Orders 08/17/20 12:59 CT head/brain wo con Stat Vital Signs Vital signs: Vital Signs - 8 hr 08/17/20 12:57 08/17/20 13:01 08/17/20 13:30 Temperature 98.6 F Pulse Rate 72 67 69 Respiratory Rate 12 16 Blood Pressure 135/83 124/58 L Pulse Oximetry 97 96 96 08/17/20 13:42 08/17/20 14:00 Temperature Pulse Rate 75 70 Respiratory Rate Blood Pressure 136/79 133/67 Pulse Oximetry 96 96 MDM - Fall Imaging Data CT scan - head: Radiologist's Impression: [address] [address] [address] Scan Report Signed Patient: Cristian Looney RMR#: [id number] : 1980Acct:[id number] Age/Sex: 40 / MDate of Service: 08/17/20 Loc: ED Accession Number: [id number] Procedure: CT head/brain wo con Ordering Provider: Karon Gusman D.O. PROCEDURE: CT HEAD/BRAIN WO CON INDICATIONS: fall hit head on thinners TECHNIQUE: Noncontrast 4.5 mm thick angled axial sections acquired from the foramen magnum to the vertex, with coronal and sagittal reformats. For radiation dose reduction, the following was used: automated exposure control, adjustment of mA and/or kV according to patient size. COMPARISON: None. FINDINGS: Image quality: Excellent. CSF spaces: Basal cisterns are patent. No extra-axial fluid collections. Ventricles are normal in size and shape. Brain: No midline shift. No intracranial masses or hemorrhage. Cantrell-white matter interface is normal. Distal intracranial ICA atherosclerotic calcifications. Skull and face: Suspect soft tissue contusion at the left posterior occiput. Calvarium and visualized facial bones are intact, without suspicious lesions. Hyperostosis frontalis. Sinuses: Mucosal thickening in the bilateral maxillary sinuses, left greater than right. There may be increased density in the right maxillary sinus. Mastoids are clear. IMPRESSION: 1. No acute intracranial abnormality. 2. Distal intracranial ICA atherosclerotic calcifications, early onset. 3. 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 4. Suspect soft tissue contusion at the left posterior scalp. No fracture. Dictated by: Wilfredo Tello M.D. on 08/17/2020 at 13:23 Approved by: Wilfredo Tello M.D. on 08/17/2020 at 13:27 MDM Narrative Medical decision making narrative: Patient did not have loss of consciousness but is on anticoagulation so CT of the head was ordered, Cspine clinically cleared. It is negative. Patient does have some low back discomfort but states not significantly worsened than normal. Red flag symptoms or discussed as reasons to return. We also noted that he has some calcification on his head CT and that he may benefit from carotid Dopplers if he has not had these in the past and he should discuss with his primary care, he is already on a statin currently which would be the initial treatment. Discharge Plan Departure Patient Disposition: Home Clinical Impression: Hematoma of scalp, Fall Discharge Date/Time: 08/17/20 14:14 Instructions: DI for Closed Head Injury Activity Restrictions/Additional Instructions: [facility] with [facility], today on your Head CT it was noted that you have some atherosclerotic calcifications in the distal intracranial ICA. Discuss with your physician and they may wish to order Doppler ultrasounds of the carotid blood vessels in your neck for any atherosclerotic disease especially with your history of cardiac stent and intervention. You may continue home medications as prescribed. You may take Tylenol up to a 1000 mg every 8 hours as needed for pain, you may take ibuprofen in addition to this up to 800 mg every 8 hours. Moist heat, heat packs or warm showers may be helpful for increased aches or pains. Return to the ER for severe headaches, new vision changes, new weakness, numbness or tingling, severe back pain, loss of bowel or bladder control, passing out, persistent vomiting or other new or concerning symptoms. Prescriptions: No Action gemfibrozil 600 MG tablet 1,200 mg PO BEDTIME Qty: 60 RF: 0 atorvastatin 40 MG tablet 40 mg PO BEDTIME Qty: 0 RF: 0 nitroglycerin [Nitrostat] 0.4 MG tablet, sublingual 0.4 mg Sublingual PRN PRN (Reason: Chest Pain) Qty: 0 RF: 0 fluoxetine 40 mg capsule 40 mg PO BEDTIME RF: 0 isosorbide mononitrate 30 mg tablet extended release 24 hr 30 mg PO BEDTIME RF: 0 metoprolol succinate 100 mg tablet extended release 24 hr 100 mg PO BEDTIME RF: 0 losartan-hydrochlorothiazide 100-25 mg tablet 1 tab PO BEDTIME RF: 0 glimepiride 4 mg tablet 8 mg PO BEDTIME RF: 0 metformin 500 mg tablet extended release 24 hr 2,000 mg PO BEDTIME RF: 0 naproxen [Naprosyn] 500 mg tablet 500 mg PO BID PRN (Reason: pain) Qty: 14 RF: 0 Referrals: Stacey Johnson PA-C [Primary Care Provider] -
[2020-08-17 14:00] VITALS: BP 133/67; PULSE 70; O2SAT 96
== END 2020-08-17 14:14 | disposition home or self-care (01) ==
PROVIDERS: Emergency Provider Emergency Medicine; Family Provider Physician Assistant Medical; PCP Physician Assistant Medical
DX: S00.01XA Abrasion of scalp, initial encounter (principal); S00.03XA Contusion of scalp, initial encounter; W18.2XXA Fall in (into) shower or empty bathtub, initial encounter
CPT/HCPCS: 70450; 99283; 99284

== ENCOUNTER 2021-05-18 12:23 | Emergency (ER) | payer OTHER, SELFPAY ==
[2021-05-18 12:44] VITALS: BP 137/90; PULSE 81; RESP 18; TEMP 36.3; O2SAT 96; BMI 60.7
--- NOTE | 2021-05-18 13:25 | DI.RAD.S_ITS ---
PROCEDURE: XR FOOT RT 2V INDICATIONS: foot injury,on plavix TECHNIQUE: 2 views of the foot were acquired. COMPARISON: [facility], CT, CT FOOT RIGHT WITHOUT CONTRAST, 04/22/2021, 23:27. [facility], CR, XR FOOT 1 OR 2 VIEWS RIGHT, 04/22/2021, 21:58. FINDINGS: Bones: Screw and K-wire fixation of 2nd and 4th metatarsal base fractures. The hardware appears intact. Expected alignment. Soft tissues: There is soft tissue swelling about the great toe and scattered soft tissue densities possibly foreign bodies or debris. Fracture of the distal tuft is seen probably unchanged alignment since CT from 04/22/21 IMPRESSION: Expected postoperative alignment. Distal tuft fracture of the great toe grossly unchanged alignment. Soft tissue swelling. Dictated by: Mohit Gifford M.D. on 05/18/2021 at 13:57 Approved by: Mohit Gifford M.D. on 05/18/2021 at 14:00
[2021-05-18 15:50] VITALS: BP 117/81; PULSE 88; RESP 16; TEMP 36.3; O2SAT 97
--- NOTE | 2021-05-18 16:09 | PC.NURSE ---
Pt has left lower leg cast, right toe wound bleeding controlled after wrap applied on arrival.
--- NOTE | 2021-05-18 18:17 | PC.NURSE ---
Cast being removed by MAYO Phillip with cast cutter at this time. Pt tolerating well.
--- NOTE | 2021-05-18 18:58 | ED.LOWEXIN ---
HPI - Extremity Injury (Lower) <Eddie Real PA-C - Last Filed: 05/18/21 21:01> General Chief Complaint: Extremity Injury, Lower Stated Complaint: Stubbed toe, on plavix Time Seen by Provider: 05/18/21 13:20 Mode of arrival: Wheelchair History of Present Illness HPI Narrative: Cristian presents today with chief complaint of right foot pain and bleeding. He reports that he slipped on the last step of a set of stairs and scraped the bottom of his right foot. He is currently in a cast because of multiple fractures that he sustained few weeks ago and subsequent surgical repair. Partner reports that he previously had a large blood blister that they were going to follow-up with the orthopedist today that she thinks bursted which is causing all of the bleeding. He is on blood thinners. He reports baseline numbness in his right foot secondary to multiple injuries and neuropathy so denies any significant pain. He denies any fever or any other acute concerns or complaints at this time. Related Data Home Medications Medication Instructions Recorded Confirmed atorvastatin 40 mg tablet 40 mg PO BEDTIME #0 tab 07/21/16 09/21/18 gemfibrozil 600 mg tablet 1,200 mg PO BEDTIME #60 tab 07/21/16 09/21/18 nitroglycerin 0.4 mg sublingual 0.4 mg SUBLINGUAL PRN PRN #0 tab 07/21/16 09/21/18 tablet (Nitrostat) fluoxetine 40 mg capsule 40 mg PO BEDTIME 09/21/18 09/21/18 glimepiride 4 mg tablet 8 mg PO BEDTIME 09/21/18 09/21/18 isosorbide mononitrate 30 mg 30 mg PO BEDTIME 09/21/18 09/21/18 tablet,extended release 24 hr losartan 100 1 tab PO BEDTIME 09/21/18 09/21/18 mg-hydrochlorothiazide 25 mg tablet metformin 500 mg tablet,extended 2,000 mg PO BEDTIME 09/21/18 09/21/18 release 24 hr metoprolol succinate 100 mg 100 mg PO BEDTIME 09/21/18 09/21/18 tablet,extended release 24 hr Previous Rx's Medication Instructions Recorded naproxen 500 mg tablet (Naprosyn) 500 mg PO BID PRN #14 tab 03/03/20 Allergies Allergy/AdvReac Type Severity Reaction Status Date / Time metaproterenol [From ALUPENT] Allergy Unknown Verified 05/18/21 12:44 Sulfa (Sulfonamide Allergy Unknown Verified 05/18/21 12:44 Antibiotics) [SULFA (SULFONAMIDE ANTIBIOTICS)] Review of Systems <Eddie Real PA-C - Last Filed: 05/18/21 21:01> Review of Systems Narrative: As per HPI Patient History <Eddie Real PA-C - Last Filed: 05/18/21 21:01> Medical History (Updated 05/18/21 @ 19:05 by Eddie Real PA-C) Diabetes History of Darcy's gangrene Hyperlipidemia Hypertension Social History Smoking Status: Former smoker Smoking Status: Former smoker alcohol intake frequency: holidays/special occasions only Substance Use Type: marijuana Exam <Eddie Real PA-C - Last Filed: 05/18/21 21:01> Narrative Exam Narrative: Exam Narrative: Const General: cooperative, healthy appearing, comfortable, no acute distress, well developed and well groomed Nutritional Appearance: Elevated BMI Orientation: alert and oriented x3 HENMT Head: normal to inspection and atraumatic Ears: hearing grossly normal bilaterally Nose: external nose normal and nares normal Face and sinus: normal facial exam Neck Neck: normal visual inspection and supple Resp Effort & Inspection: normal respiratory effort, able to speak in complete sentences, no audible wheezes, not labored, no nasal flaring and no respiratory distress Neuro General: alert, oriented x3, tone normal and moves all extremities Cognition: normal cognition Speech: speech normal Extremities Lower extremities exposed. Cast was removed after consult in orthopedist. Large skin flap noted to the base of the great toe. Two pins noted to the lateral aspect of his foot with no significant surrounding redness. On the dorsal aspect of the foot overlying the 1st metatarsal, there is significant surrounding redness and foul-smelling purulent discharge. The Steri-Strips that are overlying the incision site are sloughing off. Psych Appearance: grossly normal and well kempt Mental Status: mental status grossly normal Speech and Movement: speech and movement normal Mood: congruent mood Affect: normal affect Initial Vital Signs Initial Vital Signs: Vital Signs Temperature 97.3 F L 05/18/21 12:44 Pulse Rate 81 08/13/21 12:44 Respiratory Rate 18 05/18/21 12:44 Blood Pressure 137/90 05/18/21 12:44 Pulse Oximetry 96 05/18/21 12:44 <DO Deedee Romero Last Filed: 05/25/21 07:39> Initial Vital Signs Initial Vital Signs: Vital Signs Temperature 97.3 F L 05/18/21 12:44 Pulse Rate 81 05/18/21 12:44 Respiratory Rate 18 05/18/21 12:44 Blood Pressure 137/90 05/18/21 12:44 Pulse Oximetry 96 05/18/21 12:44 Course <Eddie Real PA-C - Last Filed: 05/18/21 21:01> Course Course Narrative: I consult is orthopedist MAYO on-call MAYO Fuentes. I discussed the clinical findings and presentation of the patient. She agreed that Keflex would be the most appropriate antibiotic at this time and they will re-evaluated at his appointment on Friday. She also recommended a posterior short-leg with stirrup for a temporary splint while he awaits his recasting at the clinic appointment. Patient had unchanged neurovascular status pre and post splint placement. Orders Ordered: Discontinued Medications Cephalexin HCl (Cephalexin 250 Mg Capsule) 500 mg PO NOW ONE Stop: 05/18/21 20:20 Last Admin: 05/18/21 20:30 Dose: 500 mg Documented by: EMORY Vital Signs Vital signs: Vital Signs - 8 hr 05/18/21 15:50 05/18/21 20:34 Temperature 97.3 F L Pulse Rate 88 84 Respiratory Rate 16 16 Blood Pressure 117/81 116/88 Pulse Oximetry 97 97 <DO Deedee Romero Last Filed: 05/25/21 07:39> Orders Ordered: Discontinued Medications Cephalexin HCl (Cephalexin 250 Mg Capsule) 500 mg PO NOW ONE Stop: 05/18/21 20:20 Last Admin: 05/18/21 20:30 Dose: 500 mg Documented by: EMORY Vital Signs Vital signs: Vital Signs - 8 hr 05/18/21 15:50 05/18/21 20:34 Temperature 97.3 F L Pulse Rate 88 84 Respiratory Rate 16 16 Blood Pressure 117/81 116/88 Pulse Oximetry 97 97 MDM - Extremity Injury (Lower) <Eddie Real PA-C - Last Filed: 05/18/21 21:01> [facility] Narrative Medical decision making narrative: Patient does not have any significant systemic signs of illness at this time. He had two superficial skin avulsions that were Steri-Stripped back into place after thorough cleanings. After his cast was removed, foul smell is noted on the dorsal aspect of his foot where there were some Steri-Strips. There is mild surrounding erythema which could indicate an infection. I spoke with his orthopedist PA and we will start antibiotics at this time and have him follow up with them at his next appointment. Patient tolerated the entire process well. Strict return precautions were discussed with the patient and his spouse. Patient verbalizes understanding and agrees to plan and has no further concerns at this time. Thank you A [id number] system was used with the dictation of this note. Please disregard any spelling or grammatical errors. Discharge Plan Departure Patient Disposition: Home Clinical Impression: Avulsion of skin of right foot Qualifiers: Encounter type: initial encounter Qualified Code(s): S91.301A - Unspecified open wound, right foot, initial encounter Activity Restrictions/Additional Instructions: It was very nice to meet you this afternoon. Please take the antibiotics for a possible developing infection and follow up with your orthopedist at your appointment on Friday. You experience fever, significant worsening pain, or have any additional concerns or complaints do not hesitate return for re-evaluation. Thank you Eddie Real PAC Prescriptions: No Action gemfibrozil 600 MG tablet 1,200 mg PO BEDTIME Qty: 60 RF: 0 atorvastatin 40 MG tablet 40 mg PO BEDTIME Qty: 0 RF: 0 nitroglycerin [Nitrostat] 0.4 MG tablet, sublingual 0.4 mg Sublingual PRN PRN (Reason: Chest Pain) Qty: 0 RF: 0 fluoxetine 40 mg capsule 40 mg PO BEDTIME RF: 0 isosorbide mononitrate 30 mg tablet extended release 24 hr 30 mg PO BEDTIME RF: 0 metoprolol succinate 100 mg tablet extended release 24 hr 100 mg PO BEDTIME RF: 0 losartan-hydrochlorothiazide 100-25 mg tablet 1 tab PO BEDTIME RF: 0 glimepiride 4 mg tablet 8 mg PO BEDTIME RF: 0 metformin 500 mg tablet extended release 24 hr 2,000 mg PO BEDTIME RF: 0 naproxen [Naprosyn] 500 mg tablet 500 mg PO BID PRN (Reason: pain) Qty: 14 RF: 0 <Karon Gusman, - Last Filed: 05/25/21 07:39> [facility] ED Attending Alondra Attestation: I was immediately available in the department for consultation. Documentation has been reviewed. Patient case was discussed with myself. Patient was seen and evaluated by myself as well here in the department and agree the patient's cast needs to be removed fully evaluate the foot. After cast was removed. Foot and wound or cared for and patient had splint replaced with plan for follow-up on the following Friday with his orthopedic service who is aware and agreement of the plan.
[2021-05-18] MEDS: cephALEXin 250 MG CAPSULE 500 MG PO (20:30)
[2021-05-18 20:34] VITALS: BP 116/88; PULSE 84; RESP 16; O2SAT 97
== END 2021-05-18 20:35 | disposition home or self-care (01) ==
PROVIDERS: Emergency Provider Physician Assistant; Family Provider Physician Assistant Medical
DX: S91.301A Unspecified open wound, right foot, initial encounter (principal)
CPT/HCPCS: 29515; 73620; 99283

== ENCOUNTER 2023-02-20 18:41 | Emergency (ER) | payer OTHER, SELFPAY ==
[2023-02-20 18:45] VITALS: BP 178/86; PULSE 86; RESP 18; TEMP 36.9; O2SAT 95; BMI 69.9
--- NOTE | 2023-02-20 22:58 | ED.NAVMDI ---
HPI - Nausea/Vomiting/Diarrhea General Chief complaint: Nausea/Vomiting/Diarrhea Stated complaint: Thinks bacterial infection Time Seen by Provider: 02/20/23 22:50 Source: patient Mode of arrival: Wheelchair History of Present Illness HPI Narrative: Patient here for nausea vomiting diarrhea. Ongoing for the past 4 days. had similar symptoms. However he is feels like his is worse. Has had some fish smell to his stools. Denies any contaminated foods. No fever chills. Has had some abdominal cramping with diarrhea. No foreign travel. Related Data Home Medications Medication Instructions Recorded Confirmed atorvastatin 40 mg tablet 40 mg PO BEDTIME #0 tabs 07/21/16 09/21/18 gemfibrozil 600 mg tablet 1,200 mg PO BEDTIME #60 tabs 07/21/16 09/21/18 nitroglycerin 0.4 mg sublingual 0.4 mg sublingual PRN PRN Chest 07/21/16 09/21/18 tablet (Nitrostat) Pain #0 tabs fluoxetine 40 mg capsule 40 mg PO BEDTIME 09/21/18 09/21/18 glimepiride 4 mg tablet 8 mg PO BEDTIME 09/21/18 09/21/18 isosorbide mononitrate 30 mg 30 mg PO BEDTIME 09/21/18 09/21/18 tablet,extended release 24 hr losartan 100 1 tab PO BEDTIME 09/21/18 09/21/18 mg-hydrochlorothiazide 25 mg tablet metformin 500 mg tablet,extended 2,000 mg PO BEDTIME 09/21/18 09/21/18 release 24 hr metoprolol succinate 100 mg 100 mg PO BEDTIME 09/21/18 09/21/18 tablet,extended release 24 hr Previous Rx's Medication Instructions Recorded naproxen 500 mg tablet (Naprosyn) 500 mg PO BID PRN pain #14 tabs 03/03/20 Allergies Allergy/AdvReac Type Severity Reaction Status Date / Time metaproterenol [From ALUPENT] Allergy Unknown Verified 02/20/23 18:48 Sulfa (Sulfonamide Allergy Unknown Verified 02/20/23 18:48 Antibiotics) [SULFA (SULFONAMIDE ANTIBIOTICS)] Review of Systems Review of Systems Narrative: GENERAL: negative chills, fatigue, malaise, fever, sweats. HEENT: negative sinus pain, ear pain, sore throat RESPIRATORY: negative dyspnea, cough CARDIOVASCULAR: negative chest pain, palpitations GASTROINTESTINAL: Positive diarrhea and nausea, vomiting, abdominal pain : negative dysuria, frequency, hematuria MUSCULOSKELETAL: negative muscle or bony pain SKIN: negative rash, skin lesions NEUROLOGIC: negative weakness, numbness ROS Unobtainable: All systems reviewed & are unremarkable except as noted in HPI and below Patient History Medical History (Updated 02/21/23 @ 01:14 by Del Chatman MD) Diabetes History of Darcy's gangrene Hyperlipidemia Hypertension Social History Smoking Status: Former smoker Smoking Status: Former smoker alcohol intake frequency: a few times a week Substance Use Type: marijuana Exam Narrative Exam Narrative: GENERAL: in no distress, not toxic not dyspneic HEAD: Normocephalic. EYES: Pupils equal round ENT: Mucous membranes moist. NECK: Trachea midline. CARDIOVASCULAR: Regular rate and rhythm without murmurs RESPIRATORY: Clear to auscultation. Breath sounds equal bilaterally. No wheezes, rales, or rhonchi. GASTROINTESTINAL: Abdomen soft, non-tender, patient has large pannus. However nontender no peritoneal signs no pain out of proportion to exam. Bowel sounds are present. EXTREMITIES: No gross deformities. BACK: No flank tenderness. NEURO: AOx4. Patient up and walking to the bathroom without difficulty. SKIN: Warm and dry PSYCH: Not anxious, is cooperative Initial Vital Signs Initial Vital Signs: Vital Signs Temperature 98.4 F 02/20/23 18:45 Pulse Rate 86 02/20/23 18:45 Respiratory Rate 18 02/20/23 18:45 Blood Pressure 178/86 H 02/20/23 18:45 Pulse Oximetry 95 02/20/23 18:45 Oxygen Delivery Method Room Air 02/20/23 18:45 Course Orders Ordered: Discontinued Medications Lactated Ringer's (Lactated Ringers) 1,000 mls @ 1,000 mls/hr IV BOLUS ONE Stop: 02/20/23 23:54 Last Infusion: 02/21/23 00:59 Dose: 0 mls/hr Documented By: Admin: 02/20/23 23:25 Dose: 1,000 mls/hr Documented By: CECILE Vital Signs Vital signs: Vital Signs - 8 hr 02/20/23 18:45 Temperature 98.4 F Pulse Rate 86 Respiratory Rate 18 Blood Pressure 178/86 H Pulse Oximetry 95 Oxygen Delivery Method Room Air MDM - Nausea/Vomiting/Diarrhea Lab Data 02/20/23 23:05 02/20/23 23:05 Labs: Lab Results 02/20/23 02/20/23 02/20/23 Range/Units 23:05 23:05 23:05 WBC 7.0 (4.5-11.0) X10^3/uL RBC 4.92 (4.5-5.9) X10^6/uL Hgb 12.8 L (13.5-17.5) g/dL Hct 38.5 L (41-53) % MCV 78.2 L (80-100) fL MCH 26.0 (26-34) PG MCHC 33.2 (30-36) % RDW 17.2 H (11.6-14.8) % Plt Count 220 (150-400) X10^3/uL Neut % (Auto) 68.4 (50-75) % Lymph % (Auto) 17.8 L (25-40) % [place] % (Auto) 9.8 (3-14) % Eos % (Auto) 3.7 (2-4) % Baso % (Auto) 0.3 (0-2) % Neut # (Auto) 4800 (1724-1800) /uL Lymph # (Auto) 1200 (5862-7268) /uL [place] # (Auto) 700 (0-900) /uL Eos # (Auto) 300 (0-450) /uL Baso # (Auto) 0 (0-100) /uL Sodium 137 (137-145) mmol/L Potassium 3.9 (3.4-5.1) mmol/L Chloride 102 (98-107) mmol/L Carbon Dioxide 22 (22-32) mmol/L BUN 13 (9-20) mg/dL Creatinine 0.88 (0.66-1.25) mg/dL Estimated GFR > 60 (>60) mL/min BUN/Creatinine Ratio 14.8 (6-22) Glucose 86 (70-100) mg/dL Calcium 8.3 L (8.4-10.2) mg/dL Total Bilirubin 0.6 (0.2-1.3) mg/dL AST 59 (17-59) IU/L ALT 43 (<50) IU/L Alkaline Phosphatase 83 (38-126) U/L Total Protein 7.4 (6.3-8.2) g/dL Albumin 4.2 (3.5-5.0) g/dL Globulin 3.2 (1.7-4.1) g/dL Albumin/Globulin Ratio 1.3 (1.0-2.8) Lipase 211 (23-300) U/L Stl C. cayetanensis PCR (Not Detect) Stool Rotavirus (PCR) (Not Detect) Stool Adenovirus (PCR) (Not Detect) Stool Astrovirus (PCR) (Not Detect) Stool Cryptosporidium PCR (Not Detect) Stl E.coli Shiga Tox PCR (Not Detect) St Sh/Enteroin Ecoli PCR (Not Detect) Stool E coli O157 PCR Stl Enterotoxigenic E PCR (Not Detect) Stool EPEC (PCR) (Not Detect) Stl E. histolytica PCR (Not Detect) Stool Giardia Lamblia PCR (Not Detect) Stool Sapovirus (PCR) (Not Detect) Stl P. shigelloides PCR (Not Detect) St Y.enterocolitica PCR (Not Detect) Stool Vibrio (PCR) (Not Detect) Stl Vibrio cholerae PCR (Not Detect) Stl Enteroaggr Ecoli PCR (Not Detect) Stl Norovirus GI/GII PCR (Not Detect) Chlamy pneumoniae PCR Not detected (Not Detect) Adenovirus (PCR) Not detected (Not Detect) B. pertussis DNA (PCR) Not detected (Not Detecte) B.parapertussis DNA PCR Not detected (Not Detecte) Campylobacter (PCR) (Not Detect) C. difficile Tox (PCR) (Not Detect) Coronavirus OC43 (PCR) Not detected (Not Detect) Coronavirus HKU1 (PCR) Not detected (Not Detect) Coronavirus 229E (PCR) Not detected (Not Detect) SARS-CoV-2 (PCR) Not detected (Not Detecte) Coronavirus NL63 (PCR) Not detected (Not Detect) Human Metapneumovir PCR Not detected (Not Detect) Influenza Type A (PCR) Not detected (Not Detect) Influenza Type B (PCR) Not detected (Not Detect) M. pneumoniae (PCR) Not detected (Not Detect) Parainfluenza 1 (PCR) Not detected (Not Detect) Parainfluenza 2 (PCR) Not detected (Not Detect) Parainfluenza 3 (PCR) Not detected (Not Detect) Parainfluenza 4 (PCR) Not detected (Not Detect) RSV (PCR) Not detected (Not Detect) Entero/Rhino (PCR) Not detected (Not Detect) Salmonella (PCR) (Not Detect) 02/20/23 Range/Units 23:15 WBC (4.5-11.0) X10^3/uL RBC (4.5-5.9) X10^6/uL Hgb (13.5-17.5) g/dL Hct (41-53) % MCV (80-100) fL MCH (26-34) PG MCHC (30-36) % RDW (11.6-14.8) % Plt Count (150-400) X10^3/uL Neut % (Auto) (50-75) % Lymph % (Auto) (25-40) % [place] % (Auto) (3-14) % Eos % (Auto) (2-4) % Baso % (Auto) (0-2) % Neut # (Auto) (4554-1451) /uL Lymph # (Auto) (8954-5983) /uL [place] # (Auto) (0-900) /uL Eos # (Auto) (0-450) /uL Baso # (Auto) (0-100) /uL Sodium (137-145) mmol/L Potassium (3.4-5.1) mmol/L Chloride (98-107) mmol/L Carbon Dioxide (22-32) mmol/L BUN (9-20) mg/dL Creatinine (0.66-1.25) mg/dL Estimated GFR (>60) mL/min BUN/Creatinine Ratio (6-22) Glucose (70-100) mg/dL Calcium (8.4-10.2) mg/dL Total Bilirubin (0.2-1.3) mg/dL AST (17-59) IU/L ALT (<50) IU/L Alkaline Phosphatase (38-126) U/L Total Protein (6.3-8.2) g/dL Albumin (3.5-5.0) g/dL Globulin (1.7-4.1) g/dL Albumin/Globulin Ratio (1.0-2.8) Lipase (23-300) U/L Stl C. cayetanensis PCR Not detected (Not Detect) Stool Rotavirus (PCR) Detected H (Not Detect) Stool Adenovirus (PCR) Not detected (Not Detect) Stool Astrovirus (PCR) Not detected (Not Detect) Stool Cryptosporidium PCR Not detected (Not Detect) Stl E.coli Shiga Tox PCR Not detected (Not Detect) St Sh/Enteroin Ecoli PCR Not detected (Not Detect) Stool E coli O157 PCR Not Reportable Stl Enterotoxigenic E PCR Not detected (Not Detect) Stool EPEC (PCR) Not detected (Not Detect) Stl E. histolytica PCR Not detected (Not Detect) Stool Giardia Lamblia PCR Not detected (Not Detect) Stool Sapovirus (PCR) Not detected (Not Detect) Stl P. shigelloides PCR Not detected (Not Detect) St Y.enterocolitica PCR Not detected (Not Detect) Stool Vibrio (PCR) Not detected (Not Detect) Stl Vibrio cholerae PCR Not detected (Not Detect) Stl Enteroaggr Ecoli PCR Not detected (Not Detect) Stl Norovirus GI/GII PCR Not detected (Not Detect) Chlamy pneumoniae PCR (Not Detect) Adenovirus (PCR) (Not Detect) B. pertussis DNA (PCR) (Not Detecte) B.parapertussis DNA PCR (Not Detecte) Campylobacter (PCR) Not detected (Not Detect) C. difficile Tox (PCR) Not detected (Not Detect) Coronavirus OC43 (PCR) (Not Detect) Coronavirus HKU1 (PCR) (Not Detect) Coronavirus 229E (PCR) (Not Detect) SARS-CoV-2 (PCR) (Not Detecte) Coronavirus NL63 (PCR) (Not Detect) Human Metapneumovir PCR (Not Detect) Influenza Type A (PCR) (Not Detect) Influenza Type B (PCR) (Not Detect) M. pneumoniae (PCR) (Not Detect) Parainfluenza 1 (PCR) (Not Detect) Parainfluenza 2 (PCR) (Not Detect) Parainfluenza 3 (PCR) (Not Detect) Parainfluenza 4 (PCR) (Not Detect) RSV (PCR) (Not Detect) Entero/Rhino (PCR) (Not Detect) Salmonella (PCR) Not detected (Not Detect) MDM Narrative Medical decision making narrative: Patient here for nausea vomiting diarrhea. Ongoing for the past 4 days. had similar symptoms. However he is feels like his is worse. Has had some fish smell to his stools. Denies any contaminated foods. No fever chills. Has had some abdominal cramping with diarrhea. No foreign travel. After history and exam CBC CMP GI panel lipase respiratory panel IV fluids CT abdomen pelvis [facility] CC: Nausea vomiting diarrhea abdominal pain Complicating co-morbidities: Denies any abdominal surgical history Data collected from: Patient Medical records reviewed: No recent visits here for this complaint Differential considered: Includes but not limited to bacterial colitis, viral gastroenteritis, bowel obstruction, food poisoning Exam documented above, pertinent findings include: Nontender abdomen Lab Test results independently reviewed as above. Pertinent findings: GI panel positive for rotavirus, viral swab is negative WBC 7.0 sodium 137 potassium 3.9 bicarb 22 BUN 13 creatinine 0.88 GFR greater than 60 AST 59 ALT 43 Imaging studies independently reviewed: None indicated this time, patient has rotavirus infection Consultations: None indicated Treatments: IV fluids Re-evaluations: 1:15 a.m.. Spoke with patient results. Patient in no distress. Has not had diarrhea except for having be able to give stool sample here. Nontoxic. No vomiting here. Return precautions reviewed with him. Rotavirus infection is self-limited, no prescriptions are needed. It needs to run its course. Return precautions reviewed with him, he desires discharge home Discussion: Appropriate for discharge home. Viral enteritis is self-limiting, no antibiotics or prescriptions needed. Return precautions reviewed with patient. No CT imaging indicated this time. Abdomen is soft and nontender. No peritoneal signs. No pain in the portions exam. No fever here. White cell count is normal. Diagnosis: Rotavirus enteritis Discharge Plan Departure Patient Disposition: Home Clinical Impression: Rotavirus enteritis Instructions: DI for Rotavirus -- Adult, DI for Diarrhea and Traveler's Diarrhea -- Adult Activity Restrictions/Additional Instructions: Keep well hydrated. Return if worse if any questions or concerns. See family doctor in a week for re-evaluation. You have been found to have rotavirus that is likely causing your diarrhea. No antibiotics are indicated. This is self-limiting, it will take time to improve. However, keep well hydrated. Prescriptions: No Action gemfibrozil 600 MG tablet 1,200 mg PO BEDTIME Qty: 60 atorvastatin 40 MG tablet 40 mg PO BEDTIME Qty: 0 nitroglycerin [Nitrostat] 0.4 MG tablet, sublingual 0.4 mg Sublingual PRN PRN (Reason: Chest Pain) Qty: 0 fluoxetine 40 mg capsule 40 mg PO BEDTIME isosorbide mononitrate 30 mg tablet extended release 24 hr 30 mg PO BEDTIME metoprolol succinate 100 mg tablet extended release 24 hr 100 mg PO BEDTIME losartan-hydrochlorothiazide 100-25 mg tablet 1 tab PO BEDTIME glimepiride 4 mg tablet 8 mg PO BEDTIME metformin 500 mg tablet extended release 24 hr 2,000 mg PO BEDTIME naproxen [Naprosyn] 500 mg tablet 500 mg PO BID PRN (Reason: pain) Qty: 14 0RF Stand Alone Forms: Patient Portal/API
[2023-02-20] MEDS: LACTATED RINGERS 1,000 ML 1000 ML IV (23:25)
[2023-02-20 23:27] LABS: Add Manual Diff / Slide Review NO; Basophils Absolute Auto 0 /uL (0-100); Basophils Percent Auto 0.3 % (0-2); Eosinophils Absolute Auto 300 /uL (0-450); Eosinophils Percent Auto 3.7 % (2-4); Hematocrit 38.5 % (41-53); Hemoglobin 12.8 g/dL (13.5-17.5); Lymphocytes Absolute Auto 1200 /uL (1100-4500); Lymphocytes Percent Auto 17.8 % (25-40); Mean Corpuscular HGB Conc 33.2 % (30-36); Mean Corpuscular Volume 78.2 fL (80-100); Monocytes Absolute Auto 700 /uL (0-900); Monocytes Percent Auto 9.8 % (3-14); Neutrophils Absolute Auto 4800 /uL (1500-7000); Neutrophils Percent Auto 68.4 % (50-75); Platelet Count 220 X10^3/uL (150-400); Red Blood Cell Count 4.92 X10^6/uL (4.5-5.9); Red Cell Distribution Width 17.2 % (11.6-14.8)
[2023-02-20 23:40] LABS: Alanine Aminotransferase 43 IU/L (<50); Albumin 4.2 g/dL (3.5-5.0); Albumin Globulin Ratio 1.3 (1.0-2.8); Alkaline Phosphatase 83 U/L (38-126); Aspartate Aminotransferase 59 IU/L (17-59); BUN Creatinine Ratio 14.8 (6-22); Bilirubin Total 0.6 mg/dL (0.2-1.3); Blood Urea Nitrogen 13 mg/dL (9-20); Calcium 8.3 mg/dL (8.4-10.2); Carbon Dioxide 22 mmol/L (22-32); Chloride 102 mmol/L (98-107); Estimated Glomerular Filt Rate > 60 mL/min (>60); Globulin 3.2 g/dL (1.7-4.1); Glucose 86 mg/dL (70-100); HEMOLYSIS 23 (0-50); Lipase 211 U/L (23-300); Potassium 3.9 mmol/L (3.4-5.1); Sodium 137 mmol/L (137-145); Total Protein 7.4 g/dL (6.3-8.2)
[2023-02-21 00:51] LABS: Adenovirus F 40/41 Not Detected (Not Detect); Astrovirus Not Detected (Not Detect); Campylobacter Not Detected (Not Detect); Clostridium difficile toxin AB Not Detected (Not Detect); Cryptosporidium Not Detected (Not Detect); Cyclospora cayetanensis Not Detected (Not Detect); Entamoeba histolytica Not Detected (Not Detect); Enteroaggregative E.coli Not Detected (Not Detect); Enteropathogenic E.coli Not Detected (Not Detect); Enterotoxigenic E.coli It/st Not Detected (Not Detect); Giardia lamblia Not Detected (Not Detect); Norovirus GI/GII Not Detected (Not Detect); Plesiomonsa shigelloides Not Detected (Not Detect); Rotavirus A Detected (Not Detect); Salmonella Not Detected (Not Detect); Sapovirus Not Detected (Not Detect); Shiga-like toxin-prod E.coli Not Detected (Not Detect); Shigella/Enteroinvasive E.coli Not Detected (Not Detect); Vibrio Not Detected (Not Detect); Vibrio cholerae Not Detected (Not Detect); Yersinia enterocolitica Not Detected (Not Detect)
[2023-02-21 00:57] LABS: Adenovirus Not Detected (Not Detect); B. parapertussis Not Detected (Not Detecte); Bordetella pertussis Not Detected (Not Detecte); Chlamydophila pneumoniae Not Detected (Not Detect); Coronavirus 229E Not Detected (Not Detect); Coronavirus HKU1 Not Detected (Not Detect); Coronavirus NL 63 Not Detected (Not Detect); Coronavirus OC43 Not Detected (Not Detect); Human Metapneumovirus Not Detected (Not Detect); Human Rhinovirus/Enterovirus Not Detected (Not Detect); Influenza A Not Detected (Not Detect); Influenza B Not Detected (Not Detect); Mycoplasma pneumoniae Not Detected (Not Detect); Parainfluenza Virus 1 Not Detected (Not Detect); Parainfluenza Virus 2 Not Detected (Not Detect); Parainfluenza Virus 3 Not Detected (Not Detect); Parainfluenza Virus 4 Not Detected (Not Detect); Respiratory Syncytial Virus Not Detected (Not Detect); SARS- CoV-2 Not Detected (Not Detecte)
[2023-02-21 01:31] VITALS: BP 168/74; PULSE 90; RESP 22; O2SAT 96
== END 2023-02-21 01:31 | disposition home or self-care (01) ==
PROVIDERS: Emergency Provider Emergency Medicine; Family Provider Physician Assistant Medical
DX: A08.0 Rotaviral enteritis (principal); R10.9 Unspecified abdominal pain; R19.7 Diarrhea, unspecified
CPT/HCPCS: 36415; 80053; 83690; 85025; 87507; 87633; 96360; 96361; 99284